=== PATIENT | male | born 1970 | race Caucasian/White ===

== ENCOUNTER 2016-12-25 08:24 | Emergency (ER) | payer MEDICARE, MEDICAID ==
--- NOTE | 2016-12-25 11:27 | ED ---
Neck Pain - HPI Summary HPI Summary: Pt here w/ cervical pain past couple of day - worse at 3am last night while sleeping. Denies injury to the area and no radiating sx. Cannot ID alleviating nor exacerbating factors. No previous cervical issues however has a h/o lumbar back issues - injured this when he went back to work after triple bypass. Takes norco/tramadol PRN for lower back pain which is not bothering him at this time. Has had mild ST and rhinorrhea but denies fever, chills, N/V, cough, otalgia, rash, ab pain, chest pain. No anterior neck pain, visual change, ABDULLAHI, lightheadedness, pressure. - History of Current Complaint Chief Complaint: EDNeckComplaint Stated Complaint: PAINS IN NECK Time Seen by Provider: 12/25/16 10:27 Hx Obtained From: Patient Pain Intensity: 2 - Allergies/Home Medications Allergies/Adverse Reactions: Allergies Allergy/AdvReac Type Severity Reaction Status Date / Time No Known Allergies Allergy Verified 12/25/16 08:27 PMH/Surg Hx/FS Hx/Imm Hx Previously Healthy: Yes Endocrine/Hematology History: Reports: Hx Diabetes - TYPE 2 Denies: Hx Anticoagulant Therapy, Hx Blood Disorders Cardiovascular History: Reports: Hx Congestive Heart Failure - H/O LEFT HEART FAILURE, Hx Coronary Artery Disease - DYSLIPIDEMIA, triple bypass at 33 y.o. 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 CORONARY ARTERY BYPASS- [facility]. [place] [facility] FLEXIBLE W/TRANSENDOSCOPIC BALLOON DILAT. ECHO TRANS ESOPHAGEAL. RELACEMENT MITRAL VALVE WITH [employer] ATS MECHANICAL VALVE-[facility] -2011 Hx Anesthesia Reactions: Yes - AWOKE 5 DAYS AFTER HEART SURGERY-2003 Infectious Disease History: No Infectious Disease History: Denies: Hx Clostridium Difficile, Hx Hepatitis, Hx Human Immunodeficiency Virus (HIV), Hx of Known/Suspected MRSA, Hx Shingles, Hx Tuberculosis, History Other Infectious Disease, Traveled Outside the [place] in Last 30 Days - Family History Known Family History: Positive: Cardiac Disease - Social History Occupation: Unemployed Alcohol Use: None Substance Use Type: Reports: Marijuana - rarely Substance Use Comment - Amount & Last Used: OCCASIONAL Hx Tobacco Use: No Smoking Status (MU): Never Smoked Tobacco Review of Systems Negative: Fever, Chills, Fatigue Negative: Photophobia, Blurred Vision, Diplopia ENT: Other - see HPI Negative: Palpitations, Chest Pain Negative: Shortness Of Breath, Cough Gastrointestinal: Negative Positive: no symptoms reported Musculoskeletal: Other - see HPI Skin: Negative Neurological: Negative Psychological: Normal All Other Systems Reviewed And Are Negative: Yes Physical Exam Triage Information Reviewed: Yes Vital Signs On Initial Exam: Initial Vitals Temp Pulse Resp BP Pulse Ox 96.8 F 58 16 125/73 100 12/25/16 08:27 12/25/16 08:27 12/25/16 08:27 12/25/16 08:27 12/25/16 08:27 Vital Signs Reviewed: Yes Appearance: Positive: Well-Appearing, No Pain Distress, Obese Skin: Positive: Warm, Dry - no erythema, no ecchymosis over affected area Head/Face: Positive: Normal Head/Face Inspection - NTTP Eyes: Positive: Normal, EOMI, TEJA, Conjunctiva Clear ENT: Positive: Normal ENT inspection, Hearing grossly normal, Pharynx normal, TMs normal. Negative: Pharyngeal erythema, Nasal congestion, Nasal drainage Neck: Positive: Supple, Nontender, No Lymphadenopathy. Negative: Nuchal Rigidity Respiratory/Lung Sounds: Positive: Clear to Auscultation, Breath Sounds Present. Negative: Rales, Rhonchi, Wheezes Cardiovascular: Positive: Normal, RRR, S1, S2 - mechnical click Abdomen Description: Positive: Nontender, Soft Bowel Sounds: Positive: Present Musculoskeletal: Positive: Normal, Strength/ROM Intact - FROM cervical spine and UE's w/o pain or restriction, Pain @ - cervical spinous pp TTP - paracervical and paraspinal mm are NTTP; spinous pp through thoracic and lumbar region are NTTP Neurological: Positive: Normal, Sensory/Motor Intact, Alert, Oriented to Person Place, Time, CN Intact II-III, Facial Symmetry, Speech Normal, Other - (-) Kernig; (-) Brudzinski. Negative: Disoriented Psychiatric: Positive: Normal Diagnostics - Vital Signs Vital Signs Temp Pulse Resp BP Pulse Ox 12/25/16 10:12 96.8 F 48 16 104/62 98 12/25/16 09:33 97.1 F 59 16 99/66 100 12/25/16 08:27 96.8 F 58 16 125/73 100 - Laboratory Lab Statement: Any lab studies that have been ordered have been reviewed, and results considered in the medical decision making process. Neck Course/Dx - Course Course Of Treatment: Pt's neck pain appears to be from mild arthritis and muscle tension. He does not have any sx of infection nor more serious trauma to warrant a CT at this time. Reviewed danger s/sx and pt agrees to return if these present. - Diagnoses Provider Diagnoses: Cervical pain Discharge - Discharge Plan Condition: Stable Disposition: HOME Patient Education Materials: Acute Neck Pain (ED) Referrals: Steve Lopez MD [Primary Care Provider] - Additional Instructions: You appear to have mild arthritis in your neck. This may be triggering your pain. You may try warm compresses with gentle stretches as well as acetaminophen for pain. Follow-up with PCP for other options (ie. physical therapy, etc). *If pain persists or you develop new symptoms (ie, numbness, tingling, weakness , headache, fever, chills, vomiting, chest pain, arm pain, etc) return to ED
--- NOTE | 2016-12-25 12:09 | RAD ---
INDICATION: Cervical spine pain along spinous processes COMPARISON: None TECHNIQUE: Routine five-view imaging was performed FINDINGS: Bones: There are no acute bony findings. There are minor arthritic changes consisting of spurring from C5 through C7 there is minor narrowing about about C6-C7. Craniocervical junction: The odontoid and atlantodental interval are normal. Alignment: Normal Disc spaces: The remaining disc spaces are well-maintained Soft tissues: The prevertebral soft tissues are normal. IMPRESSION: NO ACUTE FINDINGS. MINOR OSTEOARTHRITIC CHANGES.
[2016-12-25 12:36] VITALS: BP 98/60
[2016-12-25] MEDS ORDERED: Lidocaine PATCH 5%* 1 PATCH TRANSDERM SCH (13:00)
[2016-12-25] MEDS ORDERED: Lidocaine Patch REMOVE* 1 NOTE MISC SCH (21:00)
== END 2016-12-25 12:36 | disposition home or self-care (01) ==
LOC: ED 08:24
DX: M54.2 Cervicalgia (principal)
CPT/HCPCS: 72050; 99282; A9270-GY